=== PATIENT | male | born 1965 | race Caucasian/White ===

== ENCOUNTER 2017-04-25 11:56 | Emergency (ER) | payer BC ==
[2017-04-25 12:00] VITALS: BP 124/84; BMI 27.2
--- NOTE | 2017-04-25 12:28 | DR.GENAD ---
HPI - PCP Primary Care Physician: brando - Complaint/Symptoms Chief Complaint:: patient has a long hx of knee pain he stated that when he drives for long periods his lefy knee hurts. he stated it has been hurting for 4 days. - Source History Provided: Patient - Mode of Arrival Mode of Arrival: Ambulatory - Timing Onset of Chief Complaint: 04/21/17 PMH - PMH Past Medical History: Yes Past Medical History: Arthritis, Hypertension Past Surgical History: Yes Surgical History: Ortho Surgery - Family History History of Family Medical Conditions: Yes Family Medical History: Hypertension - Social History Does patient currently use any type of tobacco product: No Have you used tobacco products in the last 12 months: No Type of Tobacco Use: None Does any household member use tobacco: No Alcohol Use: None Do you use any recreational Drugs:: No Lives With: Family Lives Where: Home - infectious screening In the last 2 months have you had wt loss of >10#?: NO Have you had fever, night sweats or hemotysis?: No Have you traveled outside the country in the last 6 months?: No Isolation: Standard ROS - Review of Systems Eyes: No Symptoms Reported ENTM: No Symptoms Reported Respiratoy: No Symptoms Reported Cardiovascular: No Symptoms Reported Gastrointestinal/Abdominal: No Symptoms Reported Genitourinary: No Symptoms Reported Neurological: No Symptoms Reported Musculoskeletal: Knee (left) Integumentary: No Symptoms Reported Hematologic/Lymphatic: No Symptoms Reported Endocrine: No Symptoms Reported Psychiatric: No Symptoms Reported All Other Systems: Reviewed and Negative PE - Vital Signs Vitals: Temperature 98.6 F Pulse Rate 86 Respiratory Rate 18 Blood Pressure [Left Arm] 158/96 Blood Pressure 124/84 O2 Sat by Pulse Oximetry 100 - General General Appearance: Alert - Head Head Exam: Normal Inspection - Eyes Eye exam: Normal Appearance - ENT ENT Exam: Normal Exam External Ear Exam: Normal External Inspection TM/Canal Exam: Bilateral Normal Nose Exam: Normal Nose Exam Mouth Exam: Normal Inspection Throat Exam: Normal Inspection - Neck Neck Exam: Normal Inspection - Chest Chest Inspection: Normal Inspection - Respiratory Respiratory Exam: Normal Lung Sounds Bilat Respiratory Exam: Bilateral Clear to Auscultation - Cardiovascular Cardiovascular Exam: Regular Rate - Abdominal Exam Abdominal Exam: Normal Inspection Abdominal Tenderness: LUQ. negative: RUQ, RLQ, LLQ, Epigastrium, Suprapubic, Diffuse, Mild, Moderate, Severe, Other - Extremities Extremities Exam: Tenderness (tenderness left knee) - Psychiatric Psychiatric Exam: Normal Affect - Skin Skin Exam: Warm, Dry, Intact ROR - XRAY XRAY Interpreted by: Radiologist (No change in appearance of tricompartmental osteoarthritis and joint effusion since 10/22/16) - Diagnosis Discharge Problem: Degenerative arthritis of left knee Qualifiers: Osteoarthritis type: primary Qualified Code(s): M17.12 - Unilateral primary osteoarthritis, left knee - Discharge Plan Condition: Stable - Follow ups/Referrals Follow ups/Referrals: NFD,None [Primary Care Provider] - 3 days - Instructions
--- NOTE | 2017-04-25 12:34 | RAD ---
HISTORY: Nontraumatic knee pain Study: 4 views of the left knee Comparison: 10/22/2016 Findings: No acute fractures or dislocations. Tricompartmental joint space loss. Small joint effusion and soft tissue edema throughout Hoffa's pad. This is unchanged from prior. IMPRESSION: 1. No change in the appearance of tricompartmental osteoarthritis and joint effusion. Reported By:
[2017-04-25] MEDS ORDERED: TORADOL 60 MG VIAL ONE (12:59)
[2017-04-25] MEDS ORDERED: MORPHINE SULFATE INJ 4 MG IM ONE (13:03)
[2017-04-25] MEDS ORDERED: TORADOL 60 MG VIAL IM ONE (13:03)
[2017-04-25] MEDS ORDERED: MORPHINE SULFATE INJ 4 MG ONE (13:05)
== END 2017-04-25 13:20 | disposition home or self-care (01) ==
LOC: ER 12:03
DX: M17.12 Unilateral primary osteoarthritis, left knee (principal)
CPT/HCPCS: 73560; 96372; 99282; J1885; J2270

== ENCOUNTER 2017-08-14 00:06 | Emergency (ER) | payer SELFPAY ==
[2017-08-14 00:16] VITALS: BP 123/88; BMI 27.2
--- NOTE | 2017-08-14 00:30 | DR.GENAD ---
HPI - PCP Primary Care Physician: EARL Molina) - HPI Comment HPI Comment: PAIN GETTING WORSE. HISTORY SCIATICA. - Complaint/Symptoms Chief Complaint Doctors Comments: PAIN LEFT LOWER BACK RADIATING TO LEFT LOWER EXTREMITY ALL THE WAY TO THE LEFT FOOT. Chief Complaint:: pain from left buttocks to bottom of left foot Self Treatment fo Chief Complaint: home med:tramadol - Nurses notes reviewed Nurses Notes Review: Yes - Source History Provided: Patient - Mode of Arrival Mode of Arrival: Ambulatory - Timing Onset of Chief Complaint: 08/11/17 Came on: Suddenly - Duration Duration: Constant Duration: Days - Severity Severity: Moderate PMH - PMH Past Medical History: Yes Past Medical History: Hypertension, Renal Disease Past Medical History Comment: hx of elevated creatinine Past Surgical History: Yes Surgical History: Ortho Surgery Past Surgical History Comment: cleft palate; rt. rotator cuff; prostate surgery - Family History History of Family Medical Conditions: No Family Medical History: Hypertension - Social History Does patient currently use any type of tobacco product: No Have you used tobacco products in the last 12 months: No Type of Tobacco Use: None Alcohol Use: None Do you use any recreational Drugs:: No Lives With: Alone Lives Where: Home - infectious screening In the last 2 months have you had wt loss of >10#?: NO Have you had fever, night sweats or hemotysis?: No Have you traveled outside the country in the last 6 months?: No Isolation: Standard ROS - Review of Systems Constitutional: No Symptoms Reported Eyes: No Symptoms Reported ENTM: No Symptoms Reported Respiratoy: No Symptoms Reported Cardiovascular: No Symptoms Reported Gastrointestinal/Abdominal: No Symptoms Reported Genitourinary: No Symptoms Reported Neurological: No Symptoms Reported Musculoskeletal: Back Pain (LEFT LOWER BACK.) Integumentary: No Symptoms Reported Hematologic/Lymphatic: No Symptoms Reported Endocrine: No Symptoms Reported All Other Systems: Reviewed and Negative PE - Vital Signs Vitals: Pulse Rate 79 Respiratory Rate 20 Blood Pressure [Left Arm] 158/96 Blood Pressure 123/88 O2 Sat by Pulse Oximetry 96 - General Limitations: No Limitations General Appearance: Alert - Head Head Exam: Normal Inspection - Eyes Eye exam: Normal Appearance - ENT ENT Exam: Normal External Ear Exam Throat Exam: Normal Inspection - Neck Neck Exam: Trachea Midline - Chest Chest Inspection: Symmetric Chest Wall Rise - Respiratory Respiratory Exam: Normal Lung Sounds Bilat Respiratory Exam: Bilateral Clear to Auscultation - Cardiovascular Cardiovascular Exam: Regular Rate, Normal Rhythm, Normal Heart Sounds - Abdominal Exam Abdominal Exam: Normal Inspection - Extremities Extremities Exam: Normal Inspection - Back Back Exam: Paraspinal Tenderness (LOWER BACK.) - Neurologic Neurological Exam: Alert, Oriented X3 - Psychiatric Psychiatric Exam: Normal Affect, Normal Mood - Skin Skin Exam: Normal Color MDM - Differential Diagnosis Differential Diagnosis: LOWER BACK PAIN, SCIATICA. Course - Treatment Treatment: SEE ORDERS. IM DECADRON IN ED. - Education/Counseling Education/Counseling: Patient, Education Educated On: Diagnosis, Needs for Follow Up - Diagnosis Discharge Problem: Back pain Qualifiers: Back pain location: low back pain Chronicity: acute Back pain laterality: left Sciatica presence: with sciatica Sciatica laterality: sciatica of left side Qualified Code(s): M54.42 - Lumbago with sciatica, left side Sciatica Qualifiers: Laterality: left Qualified Code(s): M54.32 - Sciatica, left side - Discharge Plan Disposition: 01 HOME, SELF-CARE Condition: Stable Prescriptions: Acetaminophen with Codeine [Tylenol/Codeine #3 300-30 mg] 1 tab PO Q4-6H PRN # 15 tab PRN Reason: Pain Methylprednisolone Dosepak 4Mg [MEDROL DOSEPAK (4 mg tab x 21)] 1 tree PO ONCE # 1 tree - Follow ups/Referrals Follow ups/Referrals: NFD,None [Primary Care Provider] - 3 days - Instructions Instructions: Sciatica, [id number] Additional Instructions: RETURN TO ED IF WORSE.
[2017-08-14] MEDS ORDERED: DECADRON INJ IM ONE (00:46)
[2017-08-14] MEDS ORDERED: DECADRON INJ ONE (00:49)
== END 2017-08-14 01:30 | disposition home or self-care (01) ==
LOC: ER 00:06
DX: M54.42 Lumbago with sciatica, left side (principal); M54.32 Sciatica, left side
CPT/HCPCS: 96372; 99282; J1100

== ENCOUNTER 2017-10-12 19:36 | Emergency (ER) | payer SELFPAY ==
[2017-10-12 19:43] VITALS: BP 150/79; BMI 27.2
[2017-10-12] MEDS ORDERED: KEFLEX CAP 500 MG PO ONE ×2 (20:55→21:04)
[2017-10-12] MEDS ORDERED: ULTRAM PO ONE (20:55)
[2017-10-12] MEDS ORDERED: XYLOCAINE VISCOUS MT STA (20:56)
[2017-10-12] MEDS ORDERED: ULTRAM ONE (21:04)
--- NOTE | 2017-10-12 21:04 | DR.TOOTHHP ---
HPI - Time Seen Time seen: 20:56 - Primary Care Physician Primary Care Physician: NFD - Complaints Chief Complaint Doctors Comments: Patient states she had surgery on his tooth three days ago and the oral surgeon had to do surgery because he was not getting a blood supply to his left molar tooth and he put stitches. States the pain is 7 of 10 and seems to be getting worst. States he cannot take NSAIDs and amoxicillin upsets his stomach. states he sees a doctor in [place] but he is on his was out of town to [place]. States he is worried about his tooth becoming infected. Sates he does not have a local doctor. Chief Complaint:: PT STATES, "I HAD SURGERY SATURDAY TO REMOVE A TOOTH AND WHERE THEY REMOVED THE TOOTH IS THROBBING. I HOPE IT AIN'T INFECTED OR SOMETHING." Self Treatment fo Chief Complaint: TYLENOL. PT'S STATES HE WAS ALSO ON AN ANTIBIOTIC PRIOR TO SURGERY. - Reviewed Nurses Notes Reviewed: Yes - Source History Provided: Patient - Mode of Arrival Mode of Arrival: Ambulatory - Timing Onset of Chief Complaint: 10/12/17 - Severity Pain Severity: None, Moderate - Location Location:: Left, Lower, Teeth, Gums - Context Onset:: Previous Caries, Recent Dental Procedure History Of: None - Modifying Factors Worsens:: Nothing, Chewing Improves:: Analgesics not used - Associated Signs and Symptoms Associated signs and symptoms: Fever, Chills PMH - PMH Past Medical History: Yes Past Medical History: GERD, Hypertension, Renal Disease Past Surgical History: Yes Surgical History: Ortho Surgery, Other Past Surgical History Comment: DENTAL SURGERY - Family History History of Family Medical Conditions: Yes Family Medical History: Hypertension - Social History Alcohol Use: None Do you use any recreational Drugs:: No Lives With: Family Lives Where: Home - infectious screening In the last 2 months have you had wt loss of >10#?: NO Have you had fever, night sweats or hemotysis?: No Have you traveled outside the country in the last 6 months?: No Isolation: Standard ROS - Review of Systems Constitutional: No Symptoms Reported. negative: See HPI, Chills, Diaphoresis, Fever, Malaise, Weakness, Irritable, Fatigue, Loss of Appetite, Other Eyes: No Symptoms Reported ENTM: No Symptoms Reported, Nose Discharge, Nose Congestion, Mouth Pain Respiratoy: No Symptoms Reported. negative: See HPI, Productive Cough, Non- Productive Cough, Moist Cough, Dry Cough, Hacking Cough, Barking Cough, Brassy Cough, Orthopnea, Short of Breath, Stridor, Wheezing, Hemoptysis, Other Cardiovascular: No Symptoms Reported Gastrointestinal/Abdominal: No Symptoms Reported. negative: See HPI, Abdominal Pain, Constipation, Diarrhea, Nausea, Vomiting, Food Intolerance, Other Genitourinary: No Symptoms Reported Neurological: No Symptoms Reported Musculoskeletal: No Symptoms Reported Integumentary: No Symptoms Reported. negative: See HPI, Change in Color, Change in Hair/Nails, Dryness, Lesions, Lumps, Rash, Itching, Wound, Bruises, Juandice, Other Hematologic/Lymphatic: No Symptoms Reported. negative: See HPI, Anemia, Blood Clots, Easy Bleeding, Easy Bruising, Swollen Glands, Lymphadenopathy, Other Endocrine: No Symptoms Reported, Increased Hunger Psychiatric: No Symptoms Reported PE - Vital Signs Vitals: Temperature 97.9 F Pulse Rate 66 Respiratory Rate 20 Blood Pressure [Left Arm] 158/96 Blood Pressure 150/79 O2 Sat by Pulse Oximetry 97 - General Limitations: No Limitations General Appearance: Alert, In No Apparent Distress - Head Head Exam: Normal Inspection, Atraumatic, Normocephalic - Eyes Eye exam: Normal Appearance, PERRL, EOMI. negative: Scleral Icterus, Conjunctival Injection, Nystagmus, Miosis, Mydrasis, Periorbital Swelling, Periorbital Tenderness, Other - ENT ENT Exam: Normal Exam, Normal Oropharynx, Normal External Ear Exam, Mucous Membranes Moist, TM's Normal Bilaterally External Ear Exam: Normal External Inspection. negative: Auricular Hematoma, Auricular Trauma, Mastoid Tenderness, Pain with Movement, External Tenderness, Periauricular Adenopathy, Other TM/Canal Exam: Bilateral Normal Nose Exam: Normal Nose Exam Mouth Exam: Normal Inspection. negative: Drooling, Trismus, Lip Swelling, Tongue Elevation, Tongue Swelling, Laceration, Other Teeth Exam: Normal Inspection, Dental Caries Throat Exam: Tonsillar Erythema - Neck Neck Exam: Normal Inspection, Full ROM, Trachea Midline - Chest Chest Inspection: Normal Inspection, Symmetric Chest Wall Rise - Respiratory Respiratory Exam: Normal Lung Sounds Bilat Respiratory Exam: Bilateral Clear to Auscultation - Cardiovascular Cardiovascular Exam: Regular Rate, Normal Rhythm, Normal Heart Sounds - Abdominal Exam Abdominal Exam: Normal Inspection, Normal Bowel Sounds, Soft Abdominal Tenderness: negative: RUQ, RLQ, LUQ, LLQ, Epigastrium, Suprapubic, Diffuse, Mild, Moderate, Severe, Other - Extremities Extremities Exam: Normal Inspection, Full ROM, Normal Capillary Refill. negative: Tenderness, Edema, Joint Swelling, Calf Tenderness, Other - Back Back Exam: Normal Inspection, Full ROM, Tenderness, (R) CVA Tenderness, Muscle Spasm, Paraspinal Tenderness - Neurologic Neurological Exam: Alert, Oriented X3, CN II-XII Intact, Normal Gait, Reflexes Normal - Psychiatric Psychiatric Exam: Normal Affect, Normal Mood. negative: Depressed, Agitated, Anxious, Flat Affect, Manic, Homicidal Ideation, Suicidal Ideation, Other - Skin Skin Exam: Warm, Dry, Intact, Normal Color - Diagnosis Discharge Problem: Dental caries, Toothache - Discharge Plan Disposition: HOME, SELF-CARE Condition: Stable Prescriptions: Cephalexin [KEFLEX CAP 500 MG *] 500 mg PO TID #21 cap Tramadol HCl [ULTRAM 50 MG *] 50 mg PO BID PRN #12 tab PRN Reason: Pain - Follow ups/Referrals Follow ups/Referrals: NFD,None [Primary Care Provider] - 3 days Benito Fisher [STAFF PHYSICIAN] - 3 days - Instructions Instructions: Dental Caries, Tooth Injuries, [id number]
== END 2017-10-12 21:31 | disposition home or self-care (01) ==
LOC: ER 19:36
DX: K02.9 Dental caries, unspecified (principal); K08.89 Other specified disorders of teeth and supporting structures
CPT/HCPCS: 99282

== ENCOUNTER 2017-12-16 03:27 | Emergency (ER) | payer SELFPAY ==
[2017-12-16 03:33] VITALS: BP 174/98; BMI 27.9
--- NOTE | 2017-12-16 04:53 | DR.GENAD ---
HPI - PCP Primary Care Physician: NFD - Complaint/Symptoms Chief Complaint Doctors Comments: Patient presented with complaint of pain in right lower jaw where tooth was extracted with difficulity. He has taken the hydrocodone given by dentist and complains that he continues to have some jaw pain. Chief Complaint:: TOOTH REMOVED ON 12/04/17 ON LOWER RIGHT JAW. PAIN INSISTS Self Treatment fo Chief Complaint: TRAMADOL AND TYLENOL AT MIDNIGHT - Source History Provided: Patient - Mode of Arrival Mode of Arrival: Ambulatory - Timing Onset of Chief Complaint: 12/04/17 PMH - PMH Past Medical History: Yes Past Medical History: Hypertension Past Surgical History: No Surgical History: Ortho Surgery, Other - Family History History of Family Medical Conditions: No Family Medical History: Hypertension - Social History Alcohol Use: None Do you use any recreational Drugs:: No Lives With: Alone Lives Where: Home - infectious screening In the last 2 months have you had wt loss of >10#?: NO Have you had fever, night sweats or hemotysis?: No Have you traveled outside the country in the last 6 months?: No Isolation: Standard ROS - Review of Systems Constitutional: No Symptoms Reported Eyes: No Symptoms Reported ENTM: No Symptoms Reported Respiratoy: No Symptoms Reported Cardiovascular: No Symptoms Reported Gastrointestinal/Abdominal: No Symptoms Reported Genitourinary: No Symptoms Reported Neurological: No Symptoms Reported Musculoskeletal: No Symptoms Reported Integumentary: No Symptoms Reported Hematologic/Lymphatic: No Symptoms Reported Endocrine: No Symptoms Reported Psychiatric: No Symptoms Reported All Other Systems: Reviewed and Negative PE - Vital Signs Vitals: Temperature 98.2 F Pulse Rate 71 Respiratory Rate 22 Blood Pressure [Left Arm] 158/96 Blood Pressure 174/98 O2 Sat by Pulse Oximetry 99 - General Limitations: No Limitations General Appearance: Alert, In No Apparent Distress - Head Head Exam: Normal Inspection, Atraumatic - Eyes Eye exam: Normal Appearance, PERRL, EOMI - ENT ENT Exam: Normal Exam, Other (dry socket at #29) External Ear Exam: Normal External Inspection TM/Canal Exam: Bilateral Normal Nose Exam: Normal Nose Exam Mouth Exam: Normal Inspection Throat Exam: Normal Inspection - Neck Neck Exam: Normal Inspection, Full ROM - Chest Chest Inspection: Normal Inspection - Respiratory Respiratory Exam: Normal Lung Sounds Bilat Respiratory Exam: Bilateral Clear to Auscultation - Cardiovascular Cardiovascular Exam: Regular Rate, Normal Rhythm - Abdominal Exam Abdominal Exam: Normal Inspection Abdominal Tenderness: negative: RUQ, RLQ, LUQ, LLQ, Epigastrium, Suprapubic, Diffuse, Mild, Moderate, Severe, Other - Extremities Extremities Exam: Normal Inspection - Back Back Exam: Normal Inspection, Full ROM - Neurologic Neurological Exam: Alert, Oriented X3, CN II-XII Intact - Psychiatric Psychiatric Exam: Normal Affect - Skin Skin Exam: Warm, Dry, Intact Course - Reevaluation 1st: Unchanged - Diagnosis Discharge Problem: tramatic tooth extraction - Discharge Plan Condition: Stable - Follow ups/Referrals Follow ups/Referrals: NFD,None [Primary Care Provider] - 3 days - Instructions
== END 2017-12-16 06:20 | disposition home or self-care (01) ==
LOC: ER 03:27
DX: M26.30 Unspecified anomaly of tooth position of fully erupted tooth or teeth (principal)
CPT/HCPCS: 99281; 99282